=== PATIENT | female | born 1975 | race African-American/Black ===

== ENCOUNTER 2016-07-06 14:34 | Emergency (ER) | payer OTHER ==
[2016-07-06 14:45] VITALS: RESP 16; TEMP 99.3
--- NOTE | 2016-07-06 15:14 | UCPHY ---
H & P Time Seen by Provider: 07/06/16 15:01 Patient Type: New HPI/ROS: This patient describes a 3 day history of nasal congestion with some facial pressure and ear pressure bilaterally. She reports associated mild sore throat. She has low-grade fever of less than 100. She also has occasional cough that she feels is primarily postnasal drip associated. She notes no exacerbating factors except for partial relief from [id number] analgesics. ROS: No high fevers or chills. No significant fatigue. HEENT: She reports no ear drainage. No change in hearing. Mild sore throat that she still tolerating p.o. intake. No significant headaches. Neuro: No migraine symptoms or other neuro symptoms. Pulmonary: No shortness of breath or pleuritic pain. 7 point ROS is otherwise negative. Past Medical/Surgical History: Otherwise healthy Smoking Status: Never smoked Physical Exam: Pleasant female no acute distress Physical Exam Vital signs are normal. HEENT: Nose: Clear discharge bilaterally. No sinus tenderness to percussion. Ears: External canals and tympanic membranes are clear with no erythema or abnormal findings bilaterally. She does have mild effusions bilaterally. Oropharynx: No erythema or exudates. No dysphonia. No drooling or stridor. Eyes: Pupils equal and react to light. Extraocular motions are intact. Lungs: Clear to auscultation bilaterally with no rales, rhonchi or wheeze. No respiratory distress. Cardiac: Regular rate and rhythm with no murmur gallop or rub Skin: No rash or pallor. Neuro: Alert with no focal deficits noted. URI-viral with serous otitis. Doubt sinusitis. Doubt bronchitis Constitutional: Initial Vital Signs Temperature (C) 37.4 C 07/06/16 14:43 Heart Rate 100 07/06/16 14:43 Respiratory Rate 16 07/06/16 14:43 Blood Pressure 114/75 07/06/16 14:43 O2 Sat (%) 95 07/06/16 14:43 O2 Delivery Mode Room Air Allergies/Adverse Reactions: No Known Allergies Allergy (Verified 07/06/16 14:45) Home Medications: Medication Instructions Recorded Fluticasone Nasal [Flonase Nasal 2 sprays NASAL DAILY #1 mdi 07/06/16 [place]] Ibuprofen [Motrin (*)] 600 mg PO Q6 PRN #30 tab 07/06/16 Departure - Departure Disposition: Home, Routine, Self-Care Clinical Impression: Viral URI with cough Condition: Good Instructions: Upper Respiratory Infection (ED) Additional Instructions: Diagnosis: 1. Viral URI 2. Serous otitis (fluid in the inner ear) Plan: Humidifier Guaifenesin Ibuprofen Flonase steroid nasal spray Zinc supplement Return for any significant worsening despite the treatment plan. Stand Alone Forms: Work Excuse Prescriptions: Fluticasone Nasal [Flonase Nasal [place]] 2 sprays NASAL DAILY #1 mdi Ibuprofen [Motrin (*)] 600 mg PO Q6 PRN #30 tab PRN Reason: Pain - PQRS PQRS Measurement: NA
[2016-07-06 15:21] VITALS: BP 120/75; PULSE 102; O2SAT 96
== END 2016-07-06 15:17 | disposition home or self-care (01) ==
LOC: CED 14:34
DX: J06.9 Acute upper respiratory infection, unspecified (principal); H65.03 Acute serous otitis media, bilateral
CPT/HCPCS: 99203-PO; G0463-PO